=== PATIENT | male | born 1945 | race Hispanic/Latino ===

== ENCOUNTER → 2020-08-26 | Outpatient (CLI) | payer OTHER, MEDICARE ==
[~2020-08-26] MED LIST: ASPI-1005 PO; LISI-617 PO; PRAS10TA6 GT; REGADENOSON 0.4 MG/5 ML PF SYG IVP SCH
== END | disposition home or self-care (01) ==
LOC: SHCH 08:32
PROVIDERS: ATTEND Internal Medicine Cardiovascular Disease
DX: R07.9 Chest pain, unspecified (principal); R06.02 Shortness of breath
CPT/HCPCS: 78452; 93017; 96374; A9500 ×2; J2785

== ENCOUNTER → 2020-09-08 | Outpatient (CLI) | payer OTHER, MEDICARE ==
[~2020-09-08] MED LIST changes: -REGADENOSON 0.4 MG/5 ML PF SYG IVP SCH
== END | disposition home or self-care (01) ==
LOC: SHCH 11:00
PROVIDERS: ATTEND Internal Medicine Cardiovascular Disease
DX: R09.89 Other specified symptoms and signs involving the circulatory and respiratory systems (principal)
CPT/HCPCS: 93880

== ENCOUNTER 2021-07-20 12:06 | Day surgery (SDC) | payer OTHER, MEDICARE ==
[2021-07-17 11:37] LABS: BASOPHILS % (AUTO) 0.7 % (0.0-5.0); EOSINOPHILS % (AUTO) 4.6 % (0.0-8.0); MEAN CORPUSCULAR HEMOGLOBIN 31.3 pg (27.0-33.0); MEAN CORPUSCULAR HGB CONC 32.8 g/dL (32.0-36.0); MEAN CORPUSCULAR VOLUME 95.5 fL (79-99); NEUTROPHILS % (AUTO) 60.3 % (40.0-77.0); PLATELET COUNT (AUTO) 257 K/uL (130-400); RED BLOOD CELL COUNT(AUTO) 4.19 MIL/uL (4.50-6.20); RED CELL DISTRIBUTION WIDTH 13.4 % (11.0-15.5); WHITE BLOOD COUNT (AUTO) 8.3 K/uL (4.8-10.8)
[2021-07-17 11:48] LABS: CREATININE 1.2 mg/dL (0.5-1.5); POTASSIUM 4.5 mmol/L (3.5-5.1)
[2021-07-20] VITALS (16 sets, daily range): BP systolic 105–128; BP diastolic 54–76
[~2021-07-20] VITALS: Ht 167.6 cm; Wt 96.2 kg
[~2021-07-20 12:06] MED LIST changes: +AEC81 PO; -ASPI-1005 PO; +ATOR40TA71 PO; +CLOP75TA32 PO; -LISI-617 PO; +LISI20TA24 PO; +METO-408 PO; +OMEP20CA12 PO; -PRAS10TA6 GT
[2021-07-20] MEDS ORDERED: LACTATED RINGERS 1000ML 1,000 ML IV ONE (12:47)
[2021-07-20] MEDS: CEFTRIAXONE 1G VIAL ONE ×2 (12:59→14:33)
[2021-07-20] MEDS ORDERED: IMIP25TA5 PO (13:08)
[2021-07-20] MEDS ORDERED: NITR0.4T50 SL (13:08)
[2021-07-20] MEDS ORDERED: LIDOCAINE PF 100MG/5ML (2%) SYRINGE 5ML ONE (14:28)
[2021-07-20] MEDS ORDERED: SUCCINYLCHOLINE 200MG/10ML SYR ONE (14:28)
[2021-07-20] MEDS ORDERED: ROCURONIUM 10MG/1ML SYR 10 MG/ML ML ONE (14:29)
[2021-07-20] MEDS ORDERED: PROPOFOL 10 MG/ML 20ML VIAL IV ONE (14:29)
[2021-07-20] MEDS ORDERED: FENTANYL CITRATE PF 50 MCG/1 ML 2ML VIAL ONE (14:29)
[2021-07-20] MEDS ORDERED: GLYCOPYRROLATE 1 MG/5 ML SYRINGE ONE (14:40)
[2021-07-20] MEDS ORDERED: 0.9%NACL 10ML VIAL ONE (15:11)
[2021-07-20] MEDS ORDERED: PHENYLEPHRINE HCL 10 MG/ML 1ML VIAL IV ONE (15:11)
[2021-07-20] MEDS ORDERED: MEPERIDINE-PF 25 MG/ML SYG ONE (17:08)
[2021-07-20] MEDS ORDERED: KETOROLAC 30MG VIAL (30MG/ML) ONE (17:09)
[2021-07-20] MEDS ORDERED: ONDANSETRON 4MG INJ ONE (17:15)
[2021-07-20] MEDS ORDERED: PHENAZOPYRIDINE HCL 200 MG TABLET ONE (18:38)
== END 2021-07-20 19:35 | disposition home or self-care (01) ==
LOC: DAH 12:06
PROVIDERS: ATTEND Urology
DX: N21.0 Calculus in bladder (principal); N32.0 Bladder-neck obstruction; Z20.822 Contact with and (suspected) exposure to COVID-19; I10 Essential (primary) hypertension; K21.9 Gastro-esophageal reflux disease without esophagitis; Z98.890 Other specified postprocedural states; I25.2 Old myocardial infarction; Z79.82 Long term (current) use of aspirin; Z79.899 Other long term (current) drug therapy; Z90.79 Acquired absence of other genital organ(s); Z95.5 Presence of coronary angioplasty implant and graft
CPT/HCPCS: 36415 ×2; 52318; 52640; 80048; 82360; 85025; 87635; 93005; A4215; A4221; A4222 ×2; A4223 ×2; A4344 ×2; A4358; A4510; A4600; A4606; A4657; A4663; A6260; C1758; C9803; J0696; J1885; J2001; J2175; J2370; J2405; J2704; J3010; J3490; J7120 ×2; J0330